=== PATIENT | male | born 1950 | race Caucasian/White ===

== ENCOUNTER 2018-11-14 10:02 | Day surgery (SDC) | payer BC, MEDICARE ==
[~2018-11-14] VITALS: Ht 182.9 cm; Wt 95.3 kg
--- NOTE | ~2018-11-14 | OP ---
PATIENT NAME: KEYLA CALL JR MEDICAL RECORD: [id number] :51 [facility] DATE: SURGEON: DARRELL BROWN MD DATE OF OPERATION: 11/14/2018 REFERRING PHYSICIAN: Ankush Godinez MD of [place] and Dr. Jose Davis MD here at [place]. PREOPERATIVE DIAGNOSIS: End-stage renal disease and dependence on hemodialysis. POSTOPERATIVE DIAGNOSIS: End-stage renal disease and dependence on hemodialysis. OPERATION PERFORMED: Creation of a left wrist radiocephalic Laurent AV fistula. SURGEON: Darrell Brown MD ANESTHESIA: General with LMA per DIRECTOR MARKETING. PREOPERATIVE NOTE: Mr. Call is a 68-year-old white male patient who has been on dialysis with a tunneled catheter now for about 4 months. He was referred to [place] for preoperative vein mapping and was found to have very poor veins and it was thought that he would either an upper arm AV graft or possibly a translocated basilic vein AV fistula. He was referred to me subsequently. He is brought to the operating room at this point to do just that, probably either a basilic vein fistula or implant an Artegraft prosthetic. DESCRIPTION OF PROCEDURE: Under general anesthesia per DIRECTOR MARKETING with an LMA and without regional nerve block, the patient's left arm was prepped and draped in sterile manner. Noted immediately with vasodilatation was that he had quite a nice, even a large cephalic vein at the wrist and in the forearm and with Duplex Ultrasound I documented a very suitable cephalic vein above the antecubital space to the deltopectoral groove. A proximal venous tourniquet was used and topical nitroglycerin used as well. I opted to try to create a Laurent wrist fistula, which was certainly not expected to be the operation we did today. I made a longitudinal incision at the wrist and mobilized the cephalic vein and the radial artery. The vessels were controlled with Silastic loops. Branches and tributaries were divided with electrocautery or between ligatures of fine Vicryl. The vein was quite redundant and it was easy to do a svsj-wt-[id number] approximation. The vessels were then approximated [id number] and occluded with doubly-looped Silastic tapes. A longitudinal venotomy was made and the vein flushed proximally and distally with heparinized saline and the vein distended hydrostatically. An arteriotomy was made through which the artery was flushed proximally and distally with heparinized saline. No other systemic anticoagulation was required. A [id number]-xl-akzb anastomosis was then performed with running 7-0 Prolene and when the occluding loops were relaxed, excellent flow developed immediately in the new fistula. I then used 2 Hemoclips to close the vein distal to the anastomosis leaving in effect an end-to-side fistula and then ligated a large tributary vein with 3-0 Vicryl. This resulted in excellent pulsation and thrill in the cephalic vein all the way to the elbow. The wound was irrigated and infiltrated gently with 0.25% Marcaine without epinephrine and then closed with interrupted inverted 3-0 Vicryl and running intracuticular 4-0 Monocryl and Dermabond glue. It was dressed with Maxorb Ag, Tegaderm and Cavilon skin prep. The patient was awakened and taken to the recovery room. OPERATIVE REPORT [id number] KEYLA CALL JR Blood loss during the procedure was trivial, 1 or 2 cc, none was replaced. Sponges, instruments, and needles were accounted for. No drain was used and no surgical specimen submitted for histopathology. PLAN: I expect this fistula will mature in 6-8 weeks, though the patient has already been on hemodialysis with a catheter for about 4 months, and I will recommend early intervention at about 1 month if it is not progressing as expected. The patient will be discharged to home today to continue his same preoperative medications and diet and activities. He can leave the original operative dressing intact until I see him in the office in about 7-10 days and I will remove it then. TRANSINT:[id number] Voice Confirmation ID: [id number] DOCUMENT ID: [id number] DARRELL BROWN MD CC: JOSE DAVIS and ANKUSH GODINEZ MD [id number] DICTATION DATE: 11/14/18 1308 CIRCULATOR: 11/14/18 1517 [facility] 11/14/18 [facility] [address] [place] [address]
[2018-11-14 08:14] LABS: BASOPHILS 0.4 % (0-2); EOSINOPHILS 1.8 % (0-7); HEMATOCRIT 36.1 % (42.0-54.0); HEMOGLOBIN 11.7 g/dL (13.5-17.5); IMMATURE GRANULOCYTES 0.4 % (0-5); LYMPHOCYTES 29.1 % (15-50); MCH 30.2 pg (26.0-34.0); MCHC 32.4 g/dL (31.0-37.0); MEAN PLATELET VOLUME 10.1 fL (7.4-10.4); MONOCYTES 10.2 % (2-11); NEUTROPHILS 58.1 % (40-80); PLATELET COUNT 207 10x3/uL (130-400); RBC 3.88 10x6/uL (4.20-6.10); RDW 13.9 % (11.5-14.5); WBC 9.1 10x3/uL (4.8-10.8)
[2018-11-14 08:18] LABS: APTT 29.1 SECONDS (22.8-39.4); INR 0.96 (0.85-1.17); PROTIME 12.3 SECONDS (11.6-15.0)
[2018-11-14 08:25] LABS: ANION GAP 16.4 mmol/L (8-16); CALCIUM 8.8 mg/dL (8.5-10.1); CARBON DIOXIDE 28.9 mmol/L (21.0-32.0); CREATININE - SERUM 4.6 mg/dL (0.6-1.3); POTASSIUM - SERUM 4.3 mmol/L (3.5-5.1)
[2018-11-14 09:50] VITALS: Ht 182.9 cm; Wt 95.3 kg
[~2018-11-14 10:02] MED LIST: ASCORBIC ACID500 MG PO; BAYER CHEWABLE81 MG PO; BUPROPION HCL150 M1 PO; CELEXA20 MG PO; FLOMAX0.4 MG PO; GALZIN50 MG PO; HYDROXYZINE HCL50 MG PO; NORVASC10 MG PO; PROBIOTIC1 EAC1 PO; PROTONIX40 MG PO; TIMOPTIC 0.5 % O5 ML EACH EYE; TIROSINT25 MCG PO
[2018-11-14] MEDS ORDERED: HYDROCODON-ACE1 EAC7 PO (12:56)
--- NOTE | 2018-11-14 13:38 | NUR ---
BRUIT AUSCULTATED LEFT ARM. THRILL PALPABLE.
== END 2018-11-14 14:50 | disposition home or self-care (01) ==
LOC: D.OPS 10:02
PROVIDERS: Surgery
DX: N18.6 End stage renal disease (principal); Z99.2 Dependence on renal dialysis; Z01.812 Encounter for preprocedural laboratory examination